=== PATIENT | female | born 1980 | race Caucasian/White ===

== ENCOUNTER 2017-12-16 22:28 | Emergency (ER) | payer OTHER ==
[~2017-12-16] VITALS: Ht 165.1 cm; Wt 90.7 kg
[~2017-12-16 22:28] MED LIST: ACETAMINOPHEN-1 EAC1 PO; AFRIN15 ML NS; ALBUTEROL2.5 MG/31 INH; AMOXICILLIN 50500 M1 PO; AMOXICILLIN 50500 MG PO; AUGMENTIN 875-1 EACH PO; AUGMENTIN 875875 M1 PO; AUGMENTIN 875875 MG PO; BACTRIM DS TAB1 EACH PO; CEFDINIR300 MG PO; CEPHALEXIN 500500 M3 PO; CLARITIN10 MG PO; CLONAZEPAM0.125 MG PO; CO Q-10200 MG PO; COMPAZINE10 M1 PO; DOXYCYCLINE 10100 MG PO; FIORICET 50-321 EACH PO; FLONASE 0.05%50 MCG NASAL; IBUPROFEN 600600 M1 PO; IBUPROFEN 800800 M1 PO; LORTAB 5-500 T1 EAC1 PO; MECLIZINE HCL25 M1 PO; MEDROLDOSEPACK PO; METFORMIN HCL500 MG; METFORMIN HCL500 MG PO; MULTIVITAMINS1 EAC7 PO; NAPROSYN250 MG PO; NOHOMEMEDICATIONS; NORCO 5-325 TA1 EACH PO; ONDANSETRON HCL4 M2 PO; PREDNISONE 20 M20 M1 PO; PROAIR HFA8.5 GM; PROMETHAZINE-D120 ML PO; PROPRANOLOL 4040 M1 PO; PROTONIX40 MG PO; ROBAXIN 750 MG750 MG PO; SYNTHROID100 MCG PO; TESSALON PERLE100 MG PO; TORADOL 10 MG T10 MG PO; TRAMADOL 50 MG50 MG PO; VENTOLIN HFA 1818 GM INH; VICODIN 5-5001 EACH PO; XANAX 0.25 MG0.25 MG PO; ZANTAC 150MG T150 M1 PO; ZPAK PO
[2017-12-16 22:55] LABS: ABSOLUTE BASOPHILS 0.1 thou/uL (0.0-0.2); ABSOLUTE EOSINOPHILS 0.3 thou/uL (0.0-0.7); ABSOLUTE LYMPHOCYTES 3.4 thou/uL (0.8-5.3); ABSOLUTE MONOCYTES 0.6 thou/uL (0.0-1.2); BASOPHILS 0.9 %; EOSINOPHILS 2.3 %; HEMOGLOBIN 12.2 gm/dL (12.0-15.0); LYMPHOCYTES 25.2 %; MCH 28.5 pg (26.0-34.0); MCV 86.2 fL (80.0-100.0); MONOCYTES 4.6 %; NUCLEATED RBCS 0 /100WBC; PLATELET COUNT* 536 thou/uL (150-400); RDW-CV 14.5 % (10.5-14.5); WBC 13.5 thou/uL (4.0-11.0)
[2017-12-16 23:02] LABS: ANION GAP 9 mmol/L (7-16); BUN 6 mg/dL (7-18); CALCIUM 8.6 mg/dL (8.5-10.1); CHLORIDE 105 mmol/L (98-107); CO2 26 mmol/L (21-32); CREATININE 0.7 mg/dL (0.6-1.3); GLUCOSE 107 mg/dL (70-99); POTASSIUM 3.6 mmol/L (3.5-5.1); SODIUM 140 mmol/L (136-145)
[2017-12-16 23:13] LABS: ALBUMIN 3.5 g/dL (3.4-5.0); ALKALINE PHOSPHATASE 108 U/L (46-116); NT-PRO BRAIN NAT PEPTIDE 53 pg/mL (<300); SGOT 14 U/L (15-37); SGPT 32 U/L (30-65); TOTAL BILIRUBIN 0.1 mg/dL (<0.1-1.0); TOTAL PROTEIN 7.4 g/dL (6.4-8.2); TROPONIN-I LEVEL <0.06 ng/mL (<0.06)
[2017-12-16 23:34] LABS: INFLUENZA A ANTIGEN None Detected (None Detect); INFLUENZA B ANTIGEN None Detected (None Detect)
[2017-12-16] MEDS ORDERED: PREDNISONE50 MG PO (23:57)
[2017-12-17 00:29] VITALS: BP 138/94
--- NOTE | 2017-12-17 10:21 | EKG ---
[place] [address] ELECTROCARDIOGRAM REPORT Name: GARSIAKATHY PARSONSCHRISTIAN Room: 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: MARKOS Montiel : 1980 Requested By: Luisa Mosley Order Number: [id number] MD: Jatin Macario Measurements Intervals [place] Rate: 104 P: 44 WI: 133 QRS: 8 QRSD: 99 T: 34 QT: 342 QTc: 450 Interpretive Statements Sinus tachycardia RSR' in V1 or V2, probably normal variant Compared to ECG 06/07/2017 04:45:03 Sinus rhythm no longer present Electronically Signed On 12-17-2017 10:21:30 [employer] by Jatin Macario [email or web address] <ELECTRONICALLY SIGNED> By: Jatin Macario MD, [facility] 12/17/17 1021 2254 2254 Jatin Macario MD, [facility] /EPI
== END 2017-12-17 00:29 | disposition home or self-care (01) ==
LOC: M.ERS 22:28
PROVIDERS: Emergency Medicine
DX: J06.9 Acute upper respiratory infection, unspecified (principal); E03.9 Hypothyroidism, unspecified; K21.9 Gastro-esophageal reflux disease without esophagitis; G43.909 Migraine, unspecified, not intractable, without status migrainosus; F17.210 Nicotine dependence, cigarettes, uncomplicated; Z88.1 Allergy status to other antibiotic agents

== ENCOUNTER 2018-07-30 21:20 | Emergency (ER) | payer OTHER ==
[~2018-07-30] VITALS: Ht 165.1 cm; Wt 90.7 kg
[~2018-07-30 21:20] MED LIST changes: +PREDNISONE50 MG PO
[2018-07-30 21:50] LABS: URINE BILIRUBIN NEGATIVE (Negative); URINE BLOOD NEGATIVE (Negative); URINE CLARITY CLEAR; URINE COLOR YELLOW; URINE GLUCOSE-RANDOM NEGATIVE (Negative); URINE KETONES TRACE (Negative); URINE LEUKOCYTES NEGATIVE (Negative); URINE NITRITE NEGATIVE (Negative); URINE PROTEIN NEGATIVE (Negative); URINE SPECIFIC GRAVITY 1.025 (1.005-1.030); URINE UROBILINOGEN 0.2 E.U./dl (0.2-1.0)
[2018-07-30 22:13] LABS: ABSOLUTE BASOPHILS 0.2 thou/uL (0.0-0.2); ABSOLUTE EOSINOPHILS 0.2 thou/uL (0.0-0.7); ABSOLUTE LYMPHOCYTES 3.3 thou/uL (0.8-5.3); ABSOLUTE MONOCYTES 0.7 thou/uL (0.0-1.2); ABSOLUTE NEUTROPHILS 8.4 thou/uL (1.6-8.1); BASOPHILS 1.4 %; EOSINOPHILS 1.8 %; HEMATOCRIT 33.7 % (37.0-47.0); HEMOGLOBIN 10.8 gm/dL (12.0-15.0); LYMPHOCYTES 25.7 %; MCH 25.9 pg (26.0-34.0); MCV 80.9 fL (80.0-100.0); MONOCYTES 5.4 %; MPV 6.8 fl. (7.2-11.1); NUCLEATED RBCS 0 /100WBC; PLATELET COUNT* 564 thou/uL (150-400); POLYS 65.7 %; RBC 4.16 mil/uL (4.20-5.00); RDW-CV 15.6 % (10.5-14.5); WBC 12.7 thou/uL (4.0-11.0)
[2018-07-30 22:20] LABS: CALCIUM 8.5 mg/dL (8.5-10.1); CREATININE 0.9 mg/dL (0.6-1.3); POTASSIUM 3.6 mmol/L (3.5-5.1)
[2018-07-30 22:25] LABS: ALBUMIN 3.4 g/dL (3.4-5.0); TOTAL BILIRUBIN 0.2 mg/dL (<0.1-1.0); TOTAL PROTEIN 7.4 g/dL (6.4-8.2)
[2018-07-30] MEDS ORDERED: AUGMENTIN 875-1 EACH PO (22:33)
[2018-07-30 22:49] VITALS: BP 142/92
== END 2018-07-30 22:52 | disposition home or self-care (01) ==
LOC: M.ERS 21:20
PROVIDERS: Nurse Practitioner Family
DX: J32.9 Chronic sinusitis, unspecified (principal); R42 Dizziness and giddiness; E03.9 Hypothyroidism, unspecified; K21.9 Gastro-esophageal reflux disease without esophagitis; G43.909 Migraine, unspecified, not intractable, without status migrainosus; F17.210 Nicotine dependence, cigarettes, uncomplicated; Z88.1 Allergy status to other antibiotic agents

== ENCOUNTER 2018-08-27 21:03 | Emergency (ER) | payer OTHER ==
[~2018-08-27] VITALS: Ht 165.1 cm; Wt 90.7 kg
[2018-08-27 21:35] LABS: URINE BILIRUBIN NEGATIVE (Negative); URINE BLOOD NEGATIVE (Negative); URINE CLARITY CLEAR; URINE COLOR YELLOW; URINE GLUCOSE-RANDOM NEGATIVE (Negative); URINE KETONES NEGATIVE (Negative); URINE LEUKOCYTES-REFLEX TRACE (Negative); URINE NITRITE-REFLEX NEGATIVE (Negative); URINE PROTEIN NEGATIVE (Negative); URINE SPECIFIC GRAVITY 1.025 (1.005-1.030); URINE UROBILINOGEN 0.2 E.U./dl (0.2-1.0)
[2018-08-27 21:41] LABS: SQUAMOUS >10 Many /LPF (0-3); URINE WBC-REFLEX 6-15 Few /HPF (0-5)
[2018-08-27 21:42] LABS: BACTERIA-REFLEX 1-9 Few /HPF (None Seen); CASTS None Seen /LPF (None Seen); CRYSTALS None Seen /LPF (None Seen); URINE RBC 0-2 Rare /HPF (0-2)
[2018-08-27] MEDS ORDERED: MACROBID 100 M100 M1 PO (22:09)
[2018-08-27 22:22] VITALS: BP 156/91
== END 2018-08-27 22:23 | disposition home or self-care (01) ==
LOC: M.ERS 21:03
PROVIDERS: Nurse Practitioner Family
DX: N39.0 Urinary tract infection, site not specified (principal); E03.9 Hypothyroidism, unspecified; K21.9 Gastro-esophageal reflux disease without esophagitis; G43.909 Migraine, unspecified, not intractable, without status migrainosus; F17.210 Nicotine dependence, cigarettes, uncomplicated; Z88.1 Allergy status to other antibiotic agents; Z90.49 Acquired absence of other specified parts of digestive tract

== ENCOUNTER 2019-08-03 01:07 | Emergency (ER) | payer OTHER ==
[~2019-08-03] VITALS: Ht 165.1 cm; Wt 88.5 kg
[~2019-08-03 01:07] MED LIST changes: +MACROBID 100 M100 M1 PO
[2019-08-03 01:34] LABS: ABSOLUTE EOSINOPHILS 0.3 thou/uL (0.0-0.7); ABSOLUTE LYMPHOCYTES 3.6 thou/uL (0.8-5.3); ABSOLUTE MONOCYTES 0.8 thou/uL (0.0-1.2); ABSOLUTE NEUTROPHILS 5.5 thou/uL (1.6-8.1); BASOPHILS 0.3 %; EOSINOPHILS 2.9 %; HEMATOCRIT 38.8 % (37.0-47.0); HEMOGLOBIN 12.9 gm/dL (12.0-15.0); LYMPHOCYTES 35.1 %; MCH 28.3 pg (26.0-34.0); MCHC 33.3 g/dL (28.0-37.0); MCV 85.2 fL (80.0-100.0); MONOCYTES 7.8 %; MPV 6.8 fl. (7.2-11.1); NUCLEATED RBCS 0 /100WBC; PLATELET COUNT* 511 thou/uL (150-400); POLYS 53.9 %; RBC 4.56 mil/uL (4.20-5.00); RDW-CV 14.9 % (10.5-14.5); WBC 10.2 thou/uL (4.0-11.0)
[2019-08-03 01:53] LABS: ANION GAP 11 mmol/L (7-16); BUN 9 mg/dL (7-18); CALCIUM 8.4 mg/dL (8.5-10.1); CHLORIDE 106 mmol/L (98-107); CO2 23 mmol/L (21-32); CREATININE 0.8 mg/dL (0.6-1.3); GLUCOSE 98 mg/dL (70-99); POTASSIUM 3.8 mmol/L (3.5-5.1); SODIUM 140 mmol/L (136-145)
[2019-08-03 02:07] LABS: ALBUMIN 3.6 g/dL (3.4-5.0); ALKALINE PHOSPHATASE 107 U/L (46-116); LIPASE 104 U/L (73-393); MAGNESIUM 2.1 mg/dL (1.8-2.4); NT-PRO BRAIN NAT PEPTIDE 70 pg/mL (<300); SGOT 15 U/L (15-37); SGPT 30 U/L (30-65); TOTAL BILIRUBIN 0.2 mg/dL (<0.1-1.0); TOTAL PROTEIN 7.2 g/dL (6.4-8.2); TROPONIN-I LEVEL <0.06 ng/mL (<0.06)
[2019-08-03 04:11] VITALS: BP 114/61
--- NOTE | 2019-08-03 18:03 | EKG ---
[place] [address] ELECTROCARDIOGRAM REPORT Name: KATHY GARSIA Room: [facility]#: [id number] Admission: 08/03/19 Attend Phys: Discharge: 08/03/19 Date of : [birth year] Report #: [id number] THIS REPORT FOR: //name// [facility] ED Test Date: 2019-08-03 Test Time: 01:20:55 Pat Name: KATHY GARSIA Department: Room: Gender: F Keno Clerk: MARY ANNE : 1980 Requested By: Tato Davis Order Number: [id number] MD: Matt Mcnair Measurements Intervals [place] Rate: 82 P: 16 NC: 137 QRS: 16 QRSD: 98 T: 39 QT: 373 QTc: 436 Interpretive Statements Sinus rhythm RSR' in V1 or V2, probably normal variant Baseline wander in lead(s) V4 Compared to ECG 12/16/2017 22:54:50 Sinus tachycardia no longer present Electronically Signed On 08-03-2019 18:03:00 CDT by Matt Mcnair [email or web address] <ELECTRONICALLY SIGNED> By: Nancy Mcnair MD, [facility] 08/03/19 1803 0120 0120 Nancy Mcnair MD, [facility] /EPI
--- NOTE | 2019-08-03 18:04 | EKG ---
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: ANNIE : 1980 Requested By: Tato Davis Order Number: [id number] MD: Matt Mcnair Measurements Intervals [place] Rate: 70 P: 27 ND: 137 QRS: 13 QRSD: 102 T: 35 QT: 398 QTc: 430 Interpretive Statements Sinus rhythm RSR' in V1 or V2, probably normal variant ST elev, probable normal early repol pattern Compared to ECG 12/16/2017 22:54:50 ST (T wave) deviation now present Sinus tachycardia no longer present Electronically Signed On 08-03-2019 18:04:10 CDT by Matt Mcnair [email or web address] <ELECTRONICALLY SIGNED> By: Nancy Mcnair MD, [facility] 08/03/19 1804 0321 0321 Nancy Mcnair MD, [facility] /EPI
== END 2019-08-03 04:12 | disposition home or self-care (01) ==
LOC: M.ERS 01:07
PROVIDERS: Emergency Medicine Emergency Medical Services
DX: I10 Essential (primary) hypertension (principal); F17.210 Nicotine dependence, cigarettes, uncomplicated; E03.9 Hypothyroidism, unspecified; K21.9 Gastro-esophageal reflux disease without esophagitis; G43.909 Migraine, unspecified, not intractable, without status migrainosus; Z90.49 Acquired absence of other specified parts of digestive tract; Z88.1 Allergy status to other antibiotic agents; Z90.710 Acquired absence of both cervix and uterus

== ENCOUNTER 2020-04-25 17:34 | Emergency (ER) | payer OTHER ==
[~2020-04-25] VITALS: Ht 165.1 cm; Wt 94.8 kg
[2020-04-25] MEDS ORDERED: COZAAR 25 MG TA25 M1 PO (18:05)
[2020-04-25] MEDS ORDERED: FLONASE 0.05%50 MCG NARES (20:29)
[2020-04-25] MEDS ORDERED: AUGMENTIN 875-1 EACH PO (20:29)
[2020-04-25 20:36] VITALS: BP 133/94
== END 2020-04-25 20:37 | disposition home or self-care (01) ==
LOC: M.ERS 17:34
DX: J34.89 Other specified disorders of nose and nasal sinuses (principal); G43.909 Migraine, unspecified, not intractable, without status migrainosus; E03.9 Hypothyroidism, unspecified; K21.9 Gastro-esophageal reflux disease without esophagitis; F17.210 Nicotine dependence, cigarettes, uncomplicated; Z90.49 Acquired absence of other specified parts of digestive tract; Z90.710 Acquired absence of both cervix and uterus; Z88.1 Allergy status to other antibiotic agents

== ENCOUNTER → 2020-12-04 | Outpatient (CLI) | payer OTHER ==
[~2020-12-04] MED LIST changes: +COZAAR 25 MG TA25 M1 PO; +FLONASE 0.05%50 MCG NARES
== END ==
LOC: M.RAD 11:39
PROVIDERS: ATTEND Nurse Practitioner
DX: R92.8 Other abnormal and inconclusive findings on diagnostic imaging of breast (principal)

== ENCOUNTER 2021-03-17 12:50 | Emergency (ER) | payer OTHER ==
[~2021-03-17] VITALS: Ht 165.1 cm; Wt 95.3 kg
[2021-03-17] MEDS ORDERED: SYNTHROID50 MCG PO (13:07)
[2021-03-17] MEDS ORDERED: ALBUTEROL2.5 MG/0.5 INH ×2 (13:08→15:52)
[2021-03-17 13:44] LABS: ABSOLUTE BASOPHILS 0.1 thou/uL (0.0-0.2); ABSOLUTE EOSINOPHILS 0.3 thou/uL (0.0-0.7); ABSOLUTE LYMPHOCYTES 2.2 thou/uL (0.8-5.3); ABSOLUTE MONOCYTES 0.3 thou/uL (0.0-1.2); BASOPHILS 1.2 %; EOSINOPHILS 3.1 %; HEMATOCRIT 36.1 % (37.0-47.0); LYMPHOCYTES 21.8 %; MCH 29.5 pg (26.0-34.0); MCHC 33.2 g/dL (28.0-37.0); MCV 89.1 fL (80.0-100.0); MONOCYTES 3.3 %; MPV 6.5 fl. (7.2-11.1); NUCLEATED RBCS 0 /100WBC; PLATELET COUNT* 424 thou/uL (150-400); POLYS 70.6 %; RBC 4.06 mil/uL (4.20-5.00); RDW-CV 13.7 % (10.5-14.5); WBC 9.9 thou/uL (4.0-11.0)
[2021-03-17 13:58] LABS: CALCIUM 8.7 mg/dL (8.5-10.1); CREATININE 0.8 mg/dL (0.6-1.3); POTASSIUM 3.7 mmol/L (3.5-5.1)
[2021-03-17 14:01] LABS: APTT 23.5 Seconds (25.0-31.3); INR 0.9; PROTIME 9.8 Seconds (9.20-11.50)
[2021-03-17 14:09] LABS: ALBUMIN 3.4 g/dL (3.4-5.0); TOTAL BILIRUBIN 0.4 mg/dL (<0.1-1.0); TOTAL PROTEIN 7.3 g/dL (6.4-8.2)
[2021-03-17 14:43] LABS: URINE BILIRUBIN NEGATIVE (Negative); URINE BLOOD NEGATIVE (Negative); URINE CLARITY CLEAR; URINE COLOR YELLOW; URINE GLUCOSE-RANDOM NEGATIVE (Negative); URINE KETONES NEGATIVE (Negative); URINE LEUKOCYTES-REFLEX NEGATIVE (Negative); URINE NITRITE-REFLEX NEGATIVE (Negative); URINE PROTEIN NEGATIVE (Negative); URINE SPECIFIC GRAVITY <= 1.005 (1.005-1.030); URINE UROBILINOGEN 0.2 E.U./dl (0.2-1.0)
[2021-03-17 15:50] VITALS: BP 132/89
[2021-03-17] MEDS ORDERED: PREDNISONE 10 M10 MG PO (15:52)
[2021-03-17] MEDS ORDERED: PROTONIX40 M2 PO (15:52)
[2021-03-17] MEDS ORDERED: CITRATE OF MAG296 M1 PO (15:52)
[2021-03-17] MEDS ORDERED: DOXYCYCLINE 10100 MG PO (15:54)
--- NOTE | 2021-03-17 16:35 | EKG ---
[place] [address] ELECTROCARDIOGRAM REPORT Name: KATHY GARSIA Room: [facility]#: [id number] Admission: 03/17/21 Attend Phys: Discharge: 03/17/21 Date of : 76 Date of Service: 03/17/21 1332 Report #: [id number] THIS REPORT FOR: //name// [facility] ED Test Date: 2021-03-17 Test Time: 13:32:34 Pat Name: KATHY GARSIA Department: Room: Gender: Clipper Automatic: : 1980 Requested By: Olesya Burr Order Number: [id number] MD: Jatin Macario Measurements Intervals [place] Rate: 97 P: 53 AL: 132 QRS: 16 QRSD: 111 T: 44 QT: 358 QTc: 455 Interpretive Statements Sinus rhythm RSR' in V1 or V2, right VCD or RVH Baseline wander in lead(s) V1 Compared to ECG 08/03/2019 03:21:49 no change Electronically Signed On 03-17-2021 16:34:49 CDT by Jatin Macario [email or web address] <ELECTRONICALLY SIGNED> By: Jatin Macario MD, [facility] 03/17/21 1634 1332 1332 Jatin Macario MD, [facility] /EPI
== END 2021-03-17 15:50 | disposition home or self-care (01) ==
LOC: M.ERS 12:50
PROVIDERS: Nurse Practitioner Family
DX: J40 Bronchitis, not specified as acute or chronic (principal); K59.00 Constipation, unspecified; J32.9 Chronic sinusitis, unspecified; Z20.822 Contact with and (suspected) exposure to COVID-19; E03.9 Hypothyroidism, unspecified; K21.9 Gastro-esophageal reflux disease without esophagitis; G43.909 Migraine, unspecified, not intractable, without status migrainosus; Z90.49 Acquired absence of other specified parts of digestive tract; Z90.710 Acquired absence of both cervix and uterus; Z88.1 Allergy status to other antibiotic agents

== ENCOUNTER 2021-08-24 13:36 | Emergency (ER) | payer OTHER ==
[~2021-08-24] VITALS: Ht 165.1 cm; Wt 94.3 kg
[~2021-08-24 13:36] MED LIST changes: +ALBUTEROL2.5 MG/0.5 INH; +CITRATE OF MAG296 M1 PO; +PREDNISONE 10 M10 MG PO; +PROTONIX40 M2 PO; +SYNTHROID50 MCG PO
[2021-08-24] MEDS ORDERED: PREVACID30 MG PO (13:51)
[2021-08-24] MEDS ORDERED: VENTOLIN HFA 1818 GM INH (13:52)
[2021-08-24 14:23] LABS: ABSOLUTE BASOPHILS 0.1 thou/uL (0.0-0.2); ABSOLUTE EOSINOPHILS 0.2 thou/uL (0.0-0.7); ABSOLUTE LYMPHOCYTES 2.3 thou/uL (0.8-5.3); ABSOLUTE MONOCYTES 0.5 thou/uL (0.0-1.2); ABSOLUTE NEUTROPHILS 5.8 thou/uL (1.6-8.1); EOSINOPHILS 2.5 %; HEMATOCRIT 35.4 % (37.0-47.0); HEMOGLOBIN 12.1 gm/dL (12.0-15.0); LYMPHOCYTES 25.8 %; MCH 29.9 pg (26.0-34.0); MCHC 34.3 g/dL (28.0-37.0); MCV 87.1 fL (80.0-100.0); MONOCYTES 5.3 %; MPV 6.5 fl. (7.2-11.1); NUCLEATED RBCS 0 /100WBC; PLATELET COUNT* 477 thou/uL (150-400); POLYS 65.4 %; RBC 4.06 mil/uL (4.20-5.00); RDW-CV 13.6 % (10.5-14.5); WBC 8.9 thou/uL (4.0-11.0)
[2021-08-24 14:33] LABS: CALCIUM 8.8 mg/dL (8.5-10.1); CREATININE 0.8 mg/dL (0.6-1.3); POTASSIUM 3.7 mmol/L (3.5-5.1)
[2021-08-24 14:43] LABS: ALBUMIN 3.6 g/dL (3.4-5.0); TOTAL BILIRUBIN 0.3 mg/dL (<0.1-1.0); TOTAL PROTEIN 7.3 g/dL (6.4-8.2)
[2021-08-24 15:07] LABS: URINE BILIRUBIN NEGATIVE (Negative); URINE BLOOD NEGATIVE (Negative); URINE CLARITY CLEAR; URINE COLOR YELLOW; URINE GLUCOSE-RANDOM NEGATIVE (Negative); URINE KETONES NEGATIVE (Negative); URINE LEUKOCYTES-REFLEX NEGATIVE (Negative); URINE NITRITE-REFLEX NEGATIVE (Negative); URINE PROTEIN NEGATIVE (Negative); URINE SPECIFIC GRAVITY 1.015 (1.005-1.030); URINE UROBILINOGEN 0.2 E.U./dl (0.2-1.0)
[2021-08-24] MEDS ORDERED: MEDI-MECLIZINE25 MG PO (15:11)
[2021-08-24 15:38] VITALS: BP 120/84
--- NOTE | 2021-08-25 10:31 | EKG ---
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 : 1980 Requested By: Karlee Chun Order Number: [id number] MD: Kristopher Fitch Measurements Intervals [place] Rate: 106 P: 47 VT: 139 QRS: 12 QRSD: 97 T: 55 QT: 343 QTc: 456 Interpretive Statements Sinus tachycardia RSR' in V1 or V2, probably normal variant Compared to ECG 03/17/2021 13:32:34 Sinus rate has increased Right ventricular hypertrophy no longer present Electronically Signed On 08-25-2021 10:30:59 CDT by Kristopher Fitch [email or web address] <ELECTRONICALLY SIGNED> By: Kristopher Fitch MD, [facility] 08/25/21 1030 1358 1358 Kristopher Fitch MD, [facility] /EPI
== END 2021-08-24 15:40 | disposition home or self-care (01) ==
LOC: M.ERS 13:36
PROVIDERS: Physician Assistant
DX: R42 Dizziness and giddiness (principal); G93.89 Other specified disorders of brain; F17.210 Nicotine dependence, cigarettes, uncomplicated; E03.9 Hypothyroidism, unspecified; K21.9 Gastro-esophageal reflux disease without esophagitis; G43.909 Migraine, unspecified, not intractable, without status migrainosus; Z90.49 Acquired absence of other specified parts of digestive tract; Z88.1 Allergy status to other antibiotic agents; Z90.710 Acquired absence of both cervix and uterus

== ENCOUNTER 2021-11-25 07:15 | Emergency (ER) | payer OTHER ==
[~2021-11-25] VITALS: Ht 165.1 cm; Wt 90.7 kg
[~2021-11-25 07:15] MED LIST changes: +MEDI-MECLIZINE25 MG PO; +PREVACID30 MG PO
[2021-11-25] MEDS ORDERED: PREDNISONE 20 M20 M1 PO (08:31)
[2021-11-25] MEDS ORDERED: DOXYCYCLINE 10100 MG PO (08:31)
[2021-11-25] MEDS ORDERED: PROMETH-CODEIN 65 ML PO (08:31)
[2021-11-25 08:57] VITALS: BP 145/93
== END 2021-11-25 08:59 | disposition home or self-care (01) ==
LOC: M.ERS 07:15
DX: J40 Bronchitis, not specified as acute or chronic (principal); E03.9 Hypothyroidism, unspecified; K21.9 Gastro-esophageal reflux disease without esophagitis; G43.909 Migraine, unspecified, not intractable, without status migrainosus; F17.210 Nicotine dependence, cigarettes, uncomplicated; Z90.49 Acquired absence of other specified parts of digestive tract; Z90.710 Acquired absence of both cervix and uterus; Z79.899 Other long term (current) drug therapy; Z88.1 Allergy status to other antibiotic agents